=== PATIENT | female | born 1995 | race American Indian/Alaskan Native ===

== ENCOUNTER 2016-06-16 17:29 | Emergency (ER) | payer SELFPAY ==
--- NOTE | 2016-06-17 00:22 | Emergency Department Report ---
HPI - General Chief Complaint: Pain General Time Seen by Provider: 06/17/16 00:03 - HPI HPI: 21-year-old female presents today with left ankle and right shoulder pain post fall while playing basketball 2 days ago. Describes her pain as a 9 out of 10 intermittent, sharp pain. Denies numbness, weakness, paresthesias. Tried ibuprofen without relief. Denies fever, chills, nausea, vomiting, chest pain, shortness of breath, abdominal pain. ED Past Medical Hx - Past Medical History Hx Headaches / Migraines: Yes Hx Seizures: Yes Hx Asthma: Yes - Surgical History Past Surgical History?: No - Social History Smoking Status: Current Every Day Smoker Substance Use Type: Alcohol - Medications Home Medications: Home Medications Medication Instructions Recorded Confirmed Last Taken Type Ibuprofen [Motrin] 600 mg PO Q8H PRN #20 tablet 04/18/16 06/17/16 Unknown Rx Naproxen [Naprosyn] 500 mg PO BID #30 tablet 06/17/16 Unknown Rx ED Review of Systems ROS: Stated complaint: LFT ANKLE/RT SHOULDER PAIN Other details as noted in HPI Constitutional: denies: chills, fever, malaise Eyes: denies: eye pain ENT: denies: ear pain, throat pain, congestion Respiratory: denies: cough, shortness of breath, wheezing Cardiovascular: denies: chest pain, palpitations Endocrine: no symptoms reported Gastrointestinal: denies: abdominal pain, nausea, vomiting Musculoskeletal: arthralgia. denies: back pain Skin: denies: rash Neurological: denies: headache, weakness, numbness, paresthesias Physical Exam - Physical Exam Vital Signs: Vital Signs 06/16/16 18:01 Temperature 99.5 F Pulse Rate 101 H Respiratory 20 Rate Blood Pressure 115/57 O2 Sat by Pulse 100 Oximetry Physical Exam: GENERAL: The patient is well-developed and well-nourished. Patient is in NAD. HEAD: Normocephalic. Atraumatic. NECK: Full range of motion. No midline or paraspinal tenderness to palpation. CHEST/LUNGS: Clear to auscultation throughout. HEART/CARDIOVASCULAR: Regular rate and rhythm. No murmurs, rubs or gallops. ABDOMEN: Abdomen is soft, nontender. Bowel sounds normoactive. No guarding or rebound tenderness. RIGHT SHOULDER: Full range of motion but painful. Tenderness to palpation or shoulder joint. No deformity or crepitus noted. Normal sensation. 2 point discrimination intact. Peripheral pulses intact. Capillary refill less than 2 seconds. LEFT ANKLE/FOOT: Tenderness to palpation of the anterior aspect of left ankle. Full ankle range of motion but painful. Tenderness to palpation over the dorsal aspect of the left foot. No deformity or crepitus noted. No edema noted. Sensation. Peripheral pulses intact. Capillary refill less than 2 seconds. ED Course Vital Signs 06/16/16 18:01 Temperature 99.5 F Pulse Rate 101 H Respiratory 20 Rate Blood Pressure 115/57 O2 Sat by Pulse 100 Oximetry ED Medical Decision Making - Lab Data Vital Signs 06/16/16 06/17/16 18:01 00:45 Temperature 99.5 F 98.7 F Pulse Rate 101 H 69 Respiratory 20 16 Rate Blood Pressure 115/57 Blood Pressure 128/78 [Right] O2 Sat by Pulse 100 100 Oximetry - Radiology Data Radiology results: report reviewed EXAM: XR SHOULDER 2 RT HISTORY: rt shoulder Pain post basketball injury TECHNIQUE: 3 views of the right shoulder. PRIORS: None FINDINGS: Normal AC joint and glenohumeral joint. Normal subacromial space. No fracture or dislocation seen. IMPRESSION: 1. No acute finding. EXAM: XR ANKLE 3 LT HISTORY: lt ankle Pain post basketball injury TECHNIQUE: 3 views of the left ankle. PRIORS: None FINDINGS: Talar dome is intact. No acute fracture or dislocation seen. There is a talar beak noted, which can indicate talocalcaneal coalition. IMPRESSION: 1. No acute finding. Possible tarsal coalition. If there is a history of foot pain, consider CT or MRI. EXAM: XR FOOT 3 LT HISTORY: lt foot Pain post basketball injury TECHNIQUE: 3 views of the left foot. PRIORS: Left ankle from the same day FINDINGS: No acute fracture or dislocation seen. No acute bone destruction. Talar beak noted. IMPRESSION: 1. No acute finding. Talar beak noted, see report of left ankle examination for further information. - Medical Decision Making 21-year-old female presents today with left ankle and foot and right shoulder pain post fall playing basketball 2 days ago. Her x-ray results reveal no fracture or dislocation. Referral for orthopedic has been provided. Patient is in no acute distress at this time. She will be discharged home and is encouraged to follow up with a primary care provider. She will be sent home on Naprosyn and is encouraged to return to the emergency room for any worsening symptoms. Critical care attestation.: If time is entered above; I have spent that time in minutes in the direct care of this critically ill patient, excluding procedure time. ED Disposition Clinical Impression: Fall Qualifiers: Encounter type: initial encounter Qualified Code(s): W19.XXXA - Unspecified fall, initial encounter Shoulder contusion Qualifiers: Encounter type: initial encounter Laterality: right Qualified Code(s): S40.011A - Contusion of right shoulder, initial encounter Ankle strain Qualifiers: Encounter type: initial encounter Laterality: left Qualified Code(s): S96.912A - Strain of unspecified muscle and tendon at ankle and foot level, left foot, initial encounter Disposition: DISCHARGED TO HOME OR SELFCARE Is pt being admited?: No Does the pt Need Aspirin: No Condition: Stable Instructions: Ankle Sprain (ED), Ankle Exercises (GEN), Shoulder Sprain (ED) Additional Instructions: Follow-up with primary care provider. Return to the emergency department if symptoms worsen. Prescriptions: Naproxen [Naprosyn] 500 mg PO BID #30 tablet Referrals: PRIMARY CAREMD [Primary Care Provider] - 3-5 Days CARLITO OROPEZA MD [Staff Physician] - 3-5 Days Forms: Work/School Release Form(ED), Accompanied Note Time of Disposition: 01:45
[2016-06-17 00:46] VITALS: BP 128/78
--- NOTE | 2016-06-17 01:13 | XRay Report ---
FINAL REPORT EXAM: XR SHOULDER 2 RT HISTORY: rt shoulder Pain post basketball injury TECHNIQUE: 3 views of the right shoulder. PRIORS: None FINDINGS: Normal AC joint and glenohumeral joint. Normal subacromial space. No fracture or dislocation seen. IMPRESSION: 1. No acute finding.
--- NOTE | 2016-06-17 01:15 | XRay Report ---
FINAL REPORT EXAM: XR ANKLE 3 LT HISTORY: lt ankle Pain post basketball injury TECHNIQUE: 3 views of the left ankle. PRIORS: None FINDINGS: Talar dome is intact. No acute fracture or dislocation seen. There is a talar beak noted, which can indicate talocalcaneal coalition. IMPRESSION: 1. No acute finding. Possible tarsal coalition. If there is a history of foot pain, consider CT or MRI.
--- NOTE | 2016-06-17 01:23 | XRay Report ---
FINAL REPORT EXAM: XR FOOT 3 LT HISTORY: lt foot Pain post basketball injury TECHNIQUE: 3 views of the left foot. PRIORS: Left ankle from the same day FINDINGS: No acute fracture or dislocation seen. No acute bone destruction. Talar beak noted. IMPRESSION: 1. No acute finding. Talar beak noted, see report of left ankle examination for further information.
== END 2016-06-17 02:11 | disposition home or self-care (01) ==
LOC: ED 17:29
DX: S40.011A Contusion of right shoulder, initial encounter (principal); S96.912A Strain of unspecified muscle and tendon at ankle and foot level, left foot, initial encounter; G43.909 Migraine, unspecified, not intractable, without status migrainosus; J45.909 Unspecified asthma, uncomplicated; F17.200 Nicotine dependence, unspecified, uncomplicated; X58.XXXA Exposure to other specified factors, initial encounter; Y93.67 Activity, basketball; Y92.310 Basketball court as the place of occurrence of the external cause; Y99.9 Unspecified external cause status